=== PATIENT | male | born 2000 | race Caucasian/White ===

== ENCOUNTER 2019-05-06 09:54 | Emergency (ER) | payer BC, SELFPAY ==
[2019-05-06 10:11] VITALS: BP 105/71; PULSE 97; RESP 18; TEMP 39; O2SAT 100
--- NOTE | 2019-05-06 11:16 | ED.URI ---
HPI - URI/Sore Throat General Chief Complaint: Upper Respiratory Infection Stated Complaint: HEADACHE/SORE THROAT/SOB Time Seen by Provider: 05/06/19 11:10 Source: patient and RN notes reviewed Mode of arrival: ambulatory Limitations: no limitations History of Present Illness HPI Narrative: 18-year-old male who presents to express care with complaints of cough, fever, sore throat, nasal drainage, body aches for the past 3 days. Patient states that he has been taking Ibuprofen and Mucinex for his symptoms, states generalized body aches rates his pain 7/10. Patient is a student as [employer] and states that he did take a flu shot this season, expresses concern about upcoming test this week. Patient states that his cough is dry but he feels congested in his chest, lungs are clear to auscultation, he denies any feelings of dyspnea, SAO2 100% on room air. Patient states that he has nasal drainage which is clear, sore throat,swollen neck glands and some nausea but no emesis. Patient states that he is drinking fluids well but his appetite is decreased. MD elicited complaint: fever, cough, sore throat, rhinorrhea, nasal congestion and other (Body aches) Pertinent past history: other Onset (ago): day(s) (3) Consistency: progressively worsening Severity: moderate Pain scale (0-10): 7 Description of mucous: clear Able to tolerate fluids by mouth: Yes Relieving factors: nothing Associated symptoms: fever, chills, rhinorrhea, nasal congestion, sore throat, cough and nausea Treatments prior to arrival: ibuprofen and other (Mucinex) Related Data Home Medications Medication Instructions Recorded Confirmed amitriptyline 10 mg PO DAILY 05/06/19 05/06/19 dicyclomine 20 mg PO BID 05/06/19 05/06/19 Allergies Allergy/AdvReac Type Severity Reaction Status Date / Time No Known Allergies Allergy Unverified 05/06/19 10:13 Review of Systems Review of Systems: Narrative: CONSTITUTIONAL:Positive fever, chills, or sweats. EYES: Denies visual changes, redness, or discharge. ENT:Positive rhinorrhea, congestion, sore throat, no otalgia. CARDIOVASCULAR: Denies chest pain, palpitations, or edema. RESPIRATORY Positive cough no dyspnea. GASTROINTESTINAL: Denies abdominal pain, positive nausea,no vomiting, or diarrhea. GENITOURINARY: Denies dysuria or hematuria. SKIN: Denies rash or itching. MUSCULOSKELETAL: Denies back pain, joint pain, positive body aches NEUROLOGIC: Denies headache, numbness, or weakness. PSYCHIATRIC: Denies anxiety or depression. All systems reviewed & are unremarkable except as noted in HPI and below PMFSH Past Medical History Medical History (Updated 05/08/19 @ 08:43 by Alicia Conner NP) IBS (irritable bowel syndrome) Social History Social History (Updated 05/07/19 @ 20:59 by Alicia Conner NP) Smoking status: Never smoker Living arrangements: dorm student housing Occupation/Education: student Gender identity (if verbalized by the patient): Male Comments At time of signature, agree with nursing past medical, surgical, social and family history. There is no relevant family history pertinent to the presenting complaint Exam Narrative: Exam Narrative: GENERAL: Ill-appearing, well-nourished, and in no acute distress. HEAD: Normocephalic, atraumatic. EYES: PERRLA and EOMI. ENT: Nares red, clear rhinorrhea no epistaxis. Mucous membranes moist.TM;s normal with good light reflex, throat red with no lesions or exudate, tonsils have minimal swelling with some redness, post nasal drainage noted NECK: Supple.lymphadenopathy CHEST: Clear to auscultation. No respiratory distress.non productive cough, SAO2 100% on room air HEART: Regular rate and rhythm. No murmur heard. Normal peripheral pulses. ABDOMEN: Soft, nontender, nondistended, normal active bowel sounds. EXTREMITIES: Normal range of motion. No edema. SKIN: Warm, dry, no rash. NEURO: No focal deficits. Alert and oriented x3. Course Vital Signs Vital signs: Vital Signs
== END 2019-05-06 11:39 | disposition home or self-care (01) ==
PROVIDERS: Emergency Provider Registered Nurse
DX: J11.1 Influenza due to unidentified influenza virus with other respiratory manifestations (principal); R11.0 Nausea
CPT/HCPCS: 87081; 87804; 87880; 99213; G0463

== ENCOUNTER 2024-07-08 13:51 | Emergency (ER) | payer BC, SELFPAY ==
--- OUTSIDE RECORDS SUMMARY | 2024-07-08 13:52 | XMS_ITS | Clinical Summary ---
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 Gender Identity Not on file Sexual Orientation Not on file Plan of Treatment Health Maintenance Due Date Last Done Comments Annual Physical 09/10/2002 HPV Vaccines (1 - Male 3-dos e series) 09/10/2014 Hepatitis C 09/10/2017 DTaP, Tdap and Td Vaccines ( 1 - Tdap) 09/10/2018 Hepatitis B Vaccines (1 of 3 - 19+ 3-dose series) 09/10/2018 COVID-19 Vaccine ( - 2023-2 5 season) 2023 Influenza Adult (#1) 2024 Meningococcal B Vaccine Aged Out No l onger eligible based on patient's age to complete this topic Meningococcal Vaccine Aged Out No demarco jovita eligible based on patient's age to complete this topic Pneumococcal Vaccine: Pediat rics (0 to 5 Years) and At-Risk Patients (6 to 64 Years) Aged Out No longer eligible b ased on patient's age to complete this topic RSV Immunizations Under 20 Months Aged Out No longer eligible based on patient's age to complete this topic
[2024-07-08 13:53] VITALS: BP 143/106; PULSE 86; RESP 16; TEMP 36.3; O2SAT 100
--- OUTSIDE RECORDS SUMMARY | 2024-07-08 13:53 | XMS_ITS | Clinical Summary ---
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 Gender Identity Not on file Sexual Orientation Not on file Plan of Treatment Health Maintenance Due Date Last Done Comments Hepatitis C Virus (HCV) Screening 1999 TdaP Immunization 1999 Human Papillomavirus (HPV) Immunization (2 - Male 2-dose series) 01/01/2014 07/02/2013 Influenza Immunization (#1) 12/04/202302/02, 01/28/2017, 12/15/2015, Additional history exists SARS-COV-2 Immunization (2023- season) 2023 Respiratory Syncytial Virus (RSV) Immunization (Adult) (1 - 1-dose 75+ series) 09/10/2074 Hepatitis B Immunization Completed 001, 02/19/2000, 1999 DTaP/Tdap/Td Immunization Discontinued 2004, 01/19/2001, 05/09/2000, Additional history exists Meningococcal Immunization (ACWY) Completed 10/24/2015 Meningococcal B Immunization Discontinued 10/07/2017 Pneumococcal Immunization Combined Aged Out No longer eligible based on patient's age to complete this topic Rotavirus Immunization Aged Out No lo nger eligible based on patient's age to complete this topic
--- OUTSIDE RECORDS SUMMARY | 2024-07-08 15:00 | XMS_ITS | Clinical Summary ---
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
--- OUTSIDE RECORDS SUMMARY | 2024-07-08 15:00 | XMS_ITS | Clinical Summary ---
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
--- NOTE | 2024-07-08 15:12 | ED.HA ---
HPI - Headache General Chief Complaint: Headache Stated Complaint: migraine headache Time Seen by Provider: 07/08/24 14:52 Source: patient Mode of arrival: ambulatory Limitations: no limitations History of Present Illness HPI Narrative: This is a 23-year-old male who presents to the ED for chief complaint of headache onset this morning around 9:00 a.m.. Patient states that he has had a couple episodes of migraines in the past but does not regularly get migraines. He does feel today's headache represents a migraine with left-sided throbbing headache that goes into the left eye. Endorses some intermittent blurred vision and nausea. States that symptoms have slightly subsided since onset this morning. Denies specific positional or exertional provocation factor. Denies fevers, chills, neck pain, numbness, weakness, head injury or LOC. Related Data Home Medications ?Medication ?Instructions ?Recorded ?Confirmed ?Last Taken ?Type amitriptyline 10 mg tablet 10 mg PO DAILY 05/06/19 05/06/19 Unknown History dicyclomine 20 mg tablet 20 mg PO BID 05/06/19 05/06/19 Unknown History Allergies Allergy/AdvReac Type Severity Reaction Status Date / Time No Known Allergies Allergy Unverified 05/06/19 10:13 Review of Systems Review of Systems: All systems as dictated in HPI [facility] Past Medical History Medical History (Updated 07/08/24 @ 15:56 by Fabián Streeter PA-C) IBS (irritable bowel syndrome) Social History Social History (Updated 05/07/19 @ 20:59 by Alicia Conner NP) Smoking status: Never smoker Living arrangements: dorm student housing Occupation/Education: student Gender identity (if verbalized by the patient): Male Exam Narrative: GENERAL: Well-appearing, well-nourished, and in no acute distress. HEAD: Normocephalic, atraumatic. EYES: PERRLA and EOMI. Mild left eye photophobia. ENT: Nares clear, no rhinorrhea or epistaxis. Mucous membranes moist. Oropharynx without tonsillar hypertrophy exudate or other lesions. NECK: Supple. No adenopathy or masses. CHEST: No respiratory distress. Clear to auscultation. No wheezes rales or rhonchi HEART: Regular rate and rhythm. No murmur heard. Normal peripheral pulses. ABDOMEN: Soft, nontender, nondistended, normal active bowel sounds. MSK: Normal range of motion. No edema. SKIN: Warm, dry, no rash. NEURO: Alert and oriented x4. No focal deficits. PSYCH: Normal mood and affect. Course Reevaluation(s) Reevaluation #1: Much improved after headache cocktail. Date: 07/08/24 Time: 17:02 Vital Signs Vital signs: Vital Signs Temperature 97.3 F L 07/08/24 13:53 Pulse Rate 86 07/08/24 13:53 Respiratory Rate 16 07/08/24 13:53 Blood Pressure 143/106 H 07/08/24 13:53 Pulse Oximetry 100 07/08/24 13:53 Oxygen Delivery Room Air 07/08/24 13:53 Temperature 97.3 F L 07/08/24 13:53 Pulse Rate 86 07/08/24 13:53 Respiratory Rate 16 07/08/24 13:53 Blood Pressure 143/106 H 07/08/24 13:53 Pulse Oximetry 100 07/08/24 13:53 Oxygen Delivery Room Air 07/08/24 13:53 MDM - Headache MDM Narrative Medical decision making narrative: This is a 23-year-old male who presents to the ED for chief complaint of headache beginning at 9:00 a.m. this morning. Vitals are normal. Exam is benign overall. Mild photophobia to the left eye. No neck stiffness or fever to indicate meningitis or deep space infection. No red flags for headaches today. Lab work unremarkable. No indication for emergent imaging of the head today. Patient was given migraine cocktail with good relief of symptoms. Patient will be discharged in stable condition. Supportive measures discussed and return precautions given. Patient is understanding and agreeable with plan for discharge with PCP follow-up. Lab Data 07/08/24 15:48 07/08/24 15:48 Labs: Lab Results 07/08/24 Range/Units 15:48 WBC 9.2 (4.5-10.0) K/mm3 RBC 5.17 (4.6-6.20) M/mm3 Hgb 15.3 (14.0-18.0) g/dL Hct 44.8 (42.0-52.0) % MCV 86.7 (80-100) fl MCH 29.6 (26-34) pg MCHC 34.2 (32-36) g/dl RDW 12.6 (11.5-14.5) % Plt Count 243 (150-375) k/mm3 MPV 9.3 (7.4-10.4) fl Immature Gran % (Auto) 0.5 (0-0.5) % Neut % (Auto) 83.7 H (45.5-73.1) % Lymph % (Auto) 11.2 L (18.3-44.2) % [place] % (Auto) 3.7 (2.6-8.5) % Eos % (Auto) 0.4 (0-4.4) % Baso % (Auto) 0.5 (0.2-1.2) % Lymph # (Auto) 1.03 (0.9-3.2) K/mm3 [place] # (Auto) 0.3 (0.1-0.6) K/mm3 Eos # (Auto) 0.0 (0-0.3) K/mm3 Baso # (Auto) 0.1 (0.0-0.1) K/mm3 Abs Immat Gran (auto) 0.05 H (0.00-0.031) K/mm3 Absolute Neuts (auto) 7.7 H (1.3-6.7) K/mm3 Absolute Nucleated RBC 0.000 (0.0-0.012) K/mm3 Nucleated RBC % 0.0 (0.0-0.2) % Sodium 140 (137-145) mmol/L Potassium 4.0 (3.4-5.0) mmol/L Chloride 105 (98-107) mmol/L Carbon Dioxide 23 (22-30) mmol/L Anion Gap 12 (4-12) mmol/L BUN 17 (9-20) mg/dL Creatinine 1.07 (0.7-1.3) mg/dL Estim Creat Clear Calc 107 ml/min Estimated GFR > 60 (59 - ) Glucose 82 (65-110) mg/dL Calcium 9.3 (8.4-10.2) mg/dL Discharge Plan Discharge Clinical Impression: Migraine Patient Disposition: Home, Self-Care Condition: Stable Instructions: Antibiotic Form, Migraine Headache (ED) Additional Instructions: Exam and workup today are reassuring overall. Please take ibuprofen 600 mg and Tylenol 500 mg as soon as you feel any headaches come on. Follow-up with PCP on this issue. If you have any new or worsening symptoms please return to the ER for further evaluation. Patient Language: Maldivian Prescriptions: New ondansetron 4 mg tablet,disintegrating 4 mg PO Q8H PRN (Reason: nausea and vomiting) Qty: 10 0RF No Action dicyclomine 20 mg tablet 20 mg PO BID amitriptyline 10 mg tablet 10 mg PO DAILY ondansetron 4 mg tablet,disintegrating 4 mg PO Q6H PRN (Reason: nausea and vomiting) Qty: 14 0RF oseltamivir [Tamiflu] 75 mg capsule 75 mg PO BID 5 Days Qty: 10 0RF Follow-up/Referrals: PHYSICIAN NOT ON STAFF,NONSTAFF [Primary Care Provider] - Time of Disposition: 17:02
[2024-07-08] MEDS: SODIUM CHLORIDE 0.9% IV 1,000 ML 999 ML IV CONT (15:50)
[2024-07-08 15:55] LABS: Basophils Absolute Auto 0.1 K/mm3 (0.0-0.1); Basophils Percent Auto 0.5 % (0.2-1.2); Eosinophils Percent Auto 0.4 % (0-4.4); Hematocrit 44.8 % (42.0-52.0); Hemoglobin 15.3 g/dL (14.0-18.0); Immature Granulocyte Absolute 0.05 K/mm3 (0.00-0.031); Immature Granulocyte Percent A 0.5 % (0-0.5); Lymphocytes Absolute Auto 1.03 K/mm3 (0.9-3.2); Lymphocytes Percent Auto 11.2 % (18.3-44.2); Mean Corpuscular HGB Conc 34.2 g/dl (32-36); Mean Corpuscular Hemoglobin 29.6 pg (26-34); Mean Corpuscular Volume 86.7 fl (80-100); Mean Platelet Volume 9.3 fl (7.4-10.4); Monocytes Absolute Auto 0.3 K/mm3 (0.1-0.6); Monocytes Percent Auto 3.7 % (2.6-8.5); Neutrophils Absolute Auto 7.7 K/mm3 (1.3-6.7); Neutrophils Percent Auto 83.7 % (45.5-73.1); Platelet Count Result 243 k/mm3 (150-375); Red Blood Count 5.17 M/mm3 (4.6-6.20); Red Cell Distribution Width 12.6 % (11.5-14.5); White Blood Count 9.2 K/mm3 (4.5-10.0)
[2024-07-08] MEDS: KETOROLAC 15 MG/ML VIAL (*BKC) IV PUSH (15:57)
[2024-07-08] MEDS: PROCHLORPERAZINE EDISYLATE 10 MG/2 ML VIAL IV PUSH (15:58)
[2024-07-08 16:02] LABS: Anion Gap 12 mmol/L (4-12); Blood Urea Nitrogen 17 mg/dL (9-20); Calcium 9.3 mg/dL (8.4-10.2); Carbon Dioxide 23 mmol/L (22-30); Chloride 105 mmol/L (98-107); Estimated CRCL calculation 107 ml/min; Estimated Glomerular Filt Rate > 60; Glucose 82 mg/dL (65-110); Sodium 140 mmol/L (137-145)
[2024-07-08] MEDS: diphenhydrAMINE HCl INJ 50 MG/ML VIAL 25 MG IV PUSH (16:03)
== END 2024-07-08 17:21 | disposition home or self-care (01) ==
PROVIDERS: Emergency Provider Physician Assistant
DX: G43.909 Migraine, unspecified, not intractable, without status migrainosus (principal); K58.9 Irritable bowel syndrome, unspecified
CPT/HCPCS: 36415; 80048; 85025; 96361; 96374; 96375; 99284; J0780; J1200; J1885; J7030